=== PATIENT | female | born 1980 | race Caucasian/White ===

== ENCOUNTER 2016-10-26 15:12 | Emergency (ER) | payer SELFPAY ==
[2016-10-26] MEDS ORDERED: KETOROLAC TROMETHAMINE INJ 30 MG/ML VIAL IV ONE (15:57)
[2016-10-26] MEDS ORDERED: SODIUM CHLORIDE 0.9% 1000ML 1,000 ML IVS ONE (15:57)
--- NOTE | 2016-10-26 16:02 | ED.PDOC ---
History of Present Illness - General Chief Complaint: Problem Stated Complaint: L flank pain X 2 days Time Seen by Provider: 10/26/16 15:51 Source: patient, RN notes reviewed, Vital Signs reviewed Exam Limitations: no limitations - History of Present Illness Initial Comments: Patient comes in with c/o L flank pain that is radiating to her buttock and LLQ of her abdomen. Not improving with OTC Ibuprofen. Prior to the pain starting she was having some lower abd. pain and thought she was getting a UTI but her symptoms went away except for feeling the need to strain when she urinates. No fever, chills, N/V/D. Timing/Duration: constant - over past 2 days Quality: moderate, dull, sharpness Onset Location: left flank Radiation: LLQ, other - L buttock Activites at Onset: none Prior abdominal problems: none Sexual intercourse history: single partner Improving Factors: nothing Worsening Factors: nothing Associated Symptoms: lower back pain Allergies/Adverse Reactions: Allergies NO KNOWN ALLERGY Allergy (Verified 04/03/12 11:28) Home Medications: Ambulatory Orders Cyclobenzaprine HCl [Flexeril] 5 mg PO TID PRN #15 tab 10/26/16 Review of Systems - Review of Systems Constitutional: States: no symptoms reported Respiratory: States: no symptoms reported Cardiology: States: no symptoms reported Gastrointestinal/Abdominal: States: see HPI Genitourinary: States: see HPI Musculoskeletal: States: see HPI Skin: States: no symptoms reported Neurological: States: no symptoms reported All other Systems: No Change from Baseline Family Medical History - Family History Mother Family History: No Known Physical Exam - Physical Exam General Appearance: Alert, No apparent distress, Well Developed, Well Groomed, Well Hydrated, Well Nourished, Other - uncomfortable Neck: non-tender, full range of motion, supple, normal inspection Cardiovascular/Respiratory: no M/R/G, normal peripheral pulses, no JVD, normal breath sounds, no respiratory distress Gastrointestinal/Abdominal: normal bowel sounds, soft, no organomegaly, no pulsatile mass, tenderness - LUQ and suprapubic Back Exam: CVA tenderness (L) Extremity: normal range of motion, non-tender, normal inspection, no pedal edema Neurologic: alert, normal mood/affect, oriented x 3 Skin Exam: normal color - numerous tattoos, warm/dry Progress - Progress Progress: 10/26/16 18:01 Pain is better after flexeril Will d/c home with Rx She is agreeable with plan - Results/Orders Results/Orders: Laboratory Tests 10/26/16 10/26/16 10/26/16 15:55 16:08 16:08 WBC 12.4 H RBC 4.56 Hgb 14.1 Hct 41.6 MCV 91.4 MCH 30.9 MCHC 33.8 RDW 13.4 Plt Count 275 MPV 9.1 Absolute Neuts (auto) 9.90 H Absolute Lymphs (auto) 1.90 Absolute Monos (auto) 0.50 Absolute Eos (auto) 0.10 Absolute Basos (auto) 0.10 Neutrophils % 79.9 H Lymphocytes % 15.2 L Monocytes % 4.0 Eosinophils % 0.4 L Basophils % 0.5 Sodium 137 Potassium 4.2 Chloride 108 Carbon Dioxide 20 L Anion Gap 13.2 BUN 10 Creatinine 0.57 L BUN/Creatinine Ratio 17.5 Random Glucose 88 Serum Osmolality 272.3 L Calcium 9.5 Total Bilirubin 0.7 AST 18 ALT 10 Alkaline Phosphatase 66 Serum Total Protein 6.9 Albumin 4.2 Globulin 2.7 Albumin/Globulin Ratio 1.6 Urine Color Yellow Urine Appearance Sl cloudy Urine pH 7.5 Ur Specific Gilbert 1.025 Urine Protein Negative Urine Glucose (UA) Negative Urine Ketones Negative Urine Blood Negative Urine Nitrite Negative Urine Bilirubin Negative Urine Urobilinogen 0.2 Ur Leukocyte Esterase Negative Urine RBC 0 Urine WBC 0-1 Ur Epithelial Cells 1-3 Amorphous Sediment 3+ Urine Bacteria 0 Urine Mucus Trace - EKG/XRAY/CT CT Ordered: Yes - abd/pel: no acute process per Radiologist. Departure - Departure Clinical Impression: Strain, lumbosacral Qualifiers: Encounter type: initial encounter Qualified Code(s): S39.012A - Strain of muscle, fascia and tendon of lower back, initial encounter Time of Disposition: 18:02 Disposition: Discharge to Home or Self Care Condition: Good Departure Forms: ED Discharge - Pt. Copy, Patient Portal Self Enrollment Instructions: DI for Low Back Pain Diet: resume usual diet Activity: increase activity as tolerated Prescriptions: Cyclobenzaprine HCl [Flexeril] 5 mg PO TID PRN #15 tab PRN Reason: Muscle Spasms Home Medications: Ambulatory Orders Cyclobenzaprine HCl [Flexeril] 5 mg PO TID PRN #15 tab 07/28/17
--- NOTE | 2016-10-26 16:32 | CT ---
EXAM DESCRIPTION: Abdomen/Pelvis w/o Contrast CLINICAL HISTORY: 36 years Female L flank pain COMPARISON: None. TECHNIQUE: Contiguous axial images obtained through the abdomen and pelvis without IV contrast. Reformatted images obtained. This exam was performed according to our department optimization program which includes automated exposure control, adjustment of the mA and/or kv according to patient size and/or use of iterative reconstruction technique. FINDINGS: The lung bases are clear. The liver appears unremarkable. The spleen and pancreas appear unremarkable. No adrenal masses. Nonobstructing renal calculi bilaterally. The gallbladder is visualized. No aneurysmal dilatation of the aorta. No bowel obstruction. Trace fluid in the pelvis. IMPRESSION: Nonobstructing renal calculi. No evidence of acute process Electronically signed by: Rosalva Cerrato 10/26/2016 4:31 PM CDT
[2016-10-26 16:35] VITALS: TEMP 99.3
[2016-10-26] MEDS ORDERED: CYCLOBENZAPRINE HCL 10 MG TAB PO ONE (16:58)
[2016-10-26 18:22] VITALS: BP 126/67; O2SAT 96
== END 2016-10-26 18:05 | disposition home or self-care (01) ==
LOC: ER 15:12
DX: S39.012A Strain of muscle, fascia and tendon of lower back, initial encounter (principal); X58.XXXA Exposure to other specified factors, initial encounter

== ENCOUNTER 2017-01-02 10:55 | Emergency (ER) | payer SELFPAY ==
[2017-01-02 11:14] VITALS: TEMP 97.6
[2017-01-02] MEDS ORDERED: ONDANSETRON INJ 4 MG/2 ML VIAL IV ONE (11:16)
[2017-01-02] MEDS ORDERED: SODIUM CHLORIDE 0.9% 1000ML 1,000 ML IVS ONE ×2 (11:16→12:16)
--- NOTE | 2017-01-02 11:19 | ED.PDOC ---
History of Present Illness - General Chief Complaint: GI Problem Stated Complaint: Vomiting Time Seen by Provider: 01/02/17 11:10 Information Source: patient, RN notes reviewed, Vital Signs reviewed Exam Limitations: no limitations - History of Present Illness Initial Comments: Patient comes in with c/o nausea and vomiting that started @ 03:45 this morning. Reports she has vomited 15-16 times. + body aches. No diarrhea. + sharp , cramping abdominal pain. Mouth and throat feel swollen. c/o lips tingling. Abdominal Pain Onset Location: generalized abdomen Pain Radiation: no radiation Quality: moderate, cramping, sharpness Timing/Duration: 7-24 hours Improving Factors: nothing Worsening Factors: nothing Associated Symptoms: fatigue, nausea/vomiting Review of Systems - Review of Systems Constitutional: States: malaise EENTM: States: see HPI Respiratory: States: no symptoms reported Cardiology: States: no symptoms reported Gastrointestinal/Abdominal: States: see HPI, abdominal pain, nausea, vomiting Genitourinary: States: no symptoms reported Musculoskeletal: States: other - generalized body aches Skin: States: no symptoms reported, see HPI Neurological: States: tingling - Lips All other Systems: No Change from Baseline Family Medical History - Family History Mother Family History: No Known Living Status: Still Living Physical Exam - Physical Exam General Appearance: Ill Appearing, Restless, Well Developed, Well Nourished Eyes, Ears, Nose, Throat Exam: pharynx normal, other - dry mucous membranes Neck: supple, normal inspection Respiratory: lungs clear, normal breath sounds, no respiratory distress, no accessory muscle use Cardiovascular/Chest: regular rate, rhythm, no edema, no gallop, no JVD, no murmur Gastrointestinal/Abdominal: soft, abnormal bowel sounds - Hypoactive, tenderness - Mild, diffuse w/o guarding or rebound Extremity: normal range of motion, non-tender, normal inspection Neurologic: alert, normal mood/affect, oriented x 3 Skin Exam: normal color, warm/dry Comments: Vital Signs 01/02/17 11:12 Temperature 97.6 F Pulse Rate [ 97 H Left Radial] Respiratory 20 Rate Blood Pressure 113/58 [Left Arm] O2 Sat by Pulse 96 Oximetry Progress - Progress Progress: 01/02/17 12:14 Patient reports she is feeling significantly better. Nausea is gone and she is hungry. Still with some abdominal pain but not much worse than her baseline, daily pain. Still with FRANCO so will give a 2nd L of NS and if she continues to do well with d/c with Rx for Zofran. She is agreeable with plan. 01/02/17 12:48 Discussed elevated WBC count with patient. She does have chronic Hep C and reports she has been told her WBC count is high in the past. Since she responded so well to minimal intervention makes me less concerned but did give ER warnings for high fever, localized or worsening pain. Advised developing diarrhea is normal and that this should run its course in 24-72 hours. If not or if symptoms worsen she is to return to ER. She is agreeable with plan. - Results/Orders Results/Orders: Laboratory Tests 01/02/17 01/02/17 11:30 11:30 WBC 29.0 H* RBC 5.02 Hgb 15.5 Hct 46.4 MCV 92.4 MCH 30.8 MCHC 33.4 RDW 13.4 Plt Count 388 MPV 9.1 Absolute Neuts (auto) Not Reportable Absolute Lymphs (auto) Not Reportable Absolute Monos (auto) Not Reportable Absolute Eos (auto) Not Reportable Neutrophils % Not Reportable Neutrophils % (Manual) 87.0 Lymphocytes % Not Reportable Lymphocytes % (Manual) 3.0 Monocytes % Not Reportable Monocytes % (Manual) Not Reportable Eosinophils % Not Reportable Basophils % Not Reportable Band Neutrophils 10.0 Platelet Estimate Nor RBC Morphology Normal rbc morph Sodium 142 Potassium 3.2 L Chloride 105 Carbon Dioxide 21 Anion Gap 19.2 H BUN 19 H Creatinine 0.90 BUN/Creatinine Ratio 21.1 H Random Glucose 103 Serum Osmolality Not Reportable Calcium 9.7 Total Bilirubin 1.0 AST 68 H ALT 64 H Alkaline Phosphatase 120 Serum Total Protein 7.0 Albumin 4.3 Globulin 2.7 Albumin/Globulin Ratio 1.6 Departure - Departure Clinical Impression: Gastroenteritis Time of Disposition: 13:15 Disposition: Discharge to Home or Self Care Condition: Good Departure Forms: ED Discharge - Pt. Copy, Patient Portal Self Enrollment Instructions: DI for Viral Gastroenteritis -- Adult Diet: resume usual diet - Increased water intake Activity: increase activity as tolerated Prescriptions: Ondansetron Odt [Zofran ODT] 8 mg PO Q6HR PRN #15 tab PRN Reason: Nausea/Vomiting Home Medications: Ambulatory Orders Naproxen Sodium [Aleve] 220 mg PO TID 01/02/17 Ondansetron Odt [Zofran ODT] 8 mg PO Q6HR PRN #15 tab 01/02/17 diphenhydrAMINE HCL [Benadryl] 25 mg PO BEDTIME 01/02/17
[2017-01-02 13:30] VITALS: BP 120/70; O2SAT 97
== END 2017-01-02 13:20 | disposition home or self-care (01) ==
LOC: ER 10:55
DX: K52.9 Noninfective gastroenteritis and colitis, unspecified (principal)
CPT/HCPCS: 36415; 80053; 82150; 83690; 85025; J2405; J7030

== ENCOUNTER 2017-07-19 13:41 | Emergency (ER) | payer OTHER ==
--- NOTE | 2017-07-19 14:52 | RAD ---
EXAM DESCRIPTION: Elbow,Right 2 Views CLINICAL HISTORY: fall 48 hr ago COMPARISON: None Available. TECHNIQUE: AP, Lateral FINDINGS: Two-view right elbow shows no fracture or dislocation. No displacement of distal humeral fat pads. There is no bone lesion. There are no significant arthritic changes. There is no radiopaque foreign body. IMPRESSION: Negative Electronically signed by: Salinas Plata MD 07/19/2017 2:50 PM CDT
--- NOTE | 2017-07-19 14:53 | RAD ---
EXAM DESCRIPTION: Hip,Right 2 Views CLINICAL HISTORY: 37 years, Female, fall 48 hr ago COMPARISON: None TECHNIQUE: AP and frog leg lateral views of the hip FINDINGS: 2 views of the right hip reveal no fracture or dislocation. No lytic bone lesion. Degenerative spurring is seen at the femoral head neck junction. Mild spurring at the lateral acetabulum. This may indicate femoral acetabular impingement type anatomy. Correlate with clinical symptoms. IMPRESSION: Negative for fracture or dislocation. Electronically signed by: Salinas Plata MD 07/19/2017 2:51 PM CDT
--- NOTE | 2017-07-19 14:53 | RAD ---
EXAM DESCRIPTION: Lumbar Spine 3 Views CLINICAL HISTORY: fall 48 hr ago COMPARISON: None Available. TECHNIQUE: AP/lateral/coned-down lateral FINDINGS: There is anatomic alignment of the vertebral bodies and lumbar spine. Frontal view shows intact pedicles and transverse processes. Sacrum appears intact with normal SI joints. Lateral view shows no vertebral compressions. Marked degenerative disc space narrowing is seen at L5-S1 with mild anterior and posterior spurring. Normal bony mineralization. No destructive lesion. IMPRESSION: Degenerative disc space narrowing at L5-S1. Electronically signed by: Salinas Plata MD 07/19/2017 2:52 PM CDT
--- NOTE | 2017-07-19 14:54 | RAD ---
EXAM DESCRIPTION: Shoulder,Right 2 or More Views CLINICAL HISTORY: fall 48 hr ago COMPARISON: None Available. TECHNIQUE: Two views of the right shoulder. FINDINGS: There is adequate internal and external rotation. There is no fracture or dislocation. There are no significant degenerative changes observed. AC joint appears intact. No focal bone lesion. IMPRESSION: Negative for fracture or dislocation. Electronically signed by: Salinas Plata MD 07/19/2017 2:52 PM CDT
[2017-07-19] MEDS ORDERED: predniSONE 20 MG TAB PO ONE (14:58)
[2017-07-19] MEDS ORDERED: CYCLOBENZAPRINE HCL 10 MG TAB PO ONE (14:58)
--- NOTE | 2017-07-19 15:00 | ED.PDOC ---
History of Present Illness - General Chief Complaint: Trauma Time Seen by Provider: 07/19/17 13:59 Source: patient Exam Limitations: no limitations - History of Present Illness Initial Comments: the patient is a 37-year-old female presenting to the emergency room after a fall yesterday morning. The patient tripped and fell while holding a puppy and landed on her right side. She had some pain at the time that the pain has gotten more significant over the last 24 hours diffusely. She has no deformities. She does have a mild bruise over her right forearm as well as a mild bruise over her right isidro. She is actually moving the right arm well. She reports pain in the right shoulder diffusely as well as some low back pain. She has been ambulatory. She reports some right hip pain but passive and active range of motion is normal. No crepitus and no definite bony deformities are noted. No lacerations that she does have a very mild abrasion to her right flank as well as a mild abrasion to her left forehead from the fall yesterday. No significant head injury and no loss of consciousness. The patient does obviously have some muscle spasm in the back and shoulder diffusely. Timing/Duration: 24 hours Severity: moderate Improving Factors: nothing Worsening Factors: movement Associated Symptoms: denies symptoms Allergies/Adverse Reactions: Allergies NO KNOWN ALLERGY Allergy (Verified 01/02/17 11:11) Home Medications: Ambulatory Orders Naproxen Sodium [Aleve] 220 mg PO TID 01/02/17 Ondansetron Odt [Zofran ODT] 8 mg PO Q6HR PRN #15 tab 01/02/17 diphenhydrAMINE HCL [Benadryl] 25 mg PO BEDTIME 01/02/17 Cyclobenzaprine HCl [Flexeril] 5 mg PO TID PRN #30 tab 07/19/17 predniSONE [Prednisone] 20 mg PO DAILY #3 tab 07/19/17 Review of Systems - Review of Systems Constitutional: States: no symptoms reported EENTM: States: no symptoms reported Respiratory: States: no symptoms reported Cardiology: States: no symptoms reported Gastrointestinal/Abdominal: States: no symptoms reported Genitourinary: States: no symptoms reported Musculoskeletal: States: see HPI Skin: States: see HPI Neurological: States: no symptoms reported Endocrine: States: no symptoms reported All other Systems: No Change from Baseline Past Medical History (General) - Patient Medical History Hx Seizures: No Hx Stroke: No Hx Asthma: Yes Hx of COPD: No Hx Cardiac Disorders: No Hx Congestive Heart Failure: No Hx Hypertension: No Hx Diabetes: No Hx Gastroesophageal Reflux: Yes Hx Hepatitis C: Yes Surgical History: other - Vaccination History Hx Influenza Vaccination: No Hx Pneumococcal Vaccination: Yes - 2013 - Social History Hx Tobacco Use: Yes Family Medical History - Family History Mother Family History: No Known Living Status: Still Living Physical Exam - Physical Exam General Appearance: Alert, Comfortable, No apparent distress Eye Exam: bilateral normal Ears, Nose, Throat: hearing grossly normal, normal ENT inspection Neck: full range of motion, supple Respiratory: lungs clear, normal breath sounds, no respiratory distress, no accessory muscle use Cardiovascular/Chest: normal peripheral pulses, no edema Peripheral Pulses: radial,right: 2+, radial,left: 2+, dorsalis pedis,right: 2+, dorsalis pedis,left: 2+ Gastrointestinal/Abdominal: non tender, soft Rectal Exam: deferred Back Exam: other - the patient has diffuse low back discomfort palpation. There is obvious palpable muscle spasm primarily to the left side of the lumbar spine. Extremity: non-tender, normal inspection, no pedal edema, normal capillary refill Neurologic: testing director II-XII nml as tested, alert, normal mood/affect, oriented x 3 Skin Exam: normal color - mild abrasions as above. Mild bruises as above. Comments: Vital Signs - 24 hr 07/19/17 13:45 Temperature 98.5 F Pulse Rate [ 85 left brachial] Respiratory 20 Rate Blood Pressure 151/81 [left brachial] O2 Sat by Pulse 96 Oximetry Progress - Progress Progress: 07/19/17 15:01 the patient is a 37-year-old female presenting to the emergency room after a fall yesterday. X-rays of the right shoulder, lumbar spine, right hip and right elbow show no evidence of any acute fracture or dislocation. She does have chronic degenerative changes noted. The patient has significant inflammation and some mild muscle spasm. She will be written for Flexeril as a muscle relaxer for as needed use. She will additionally be written for 3 days of oral prednisone for anti-inflammatory purposes as well. topical heat may help reduce symptoms. She will likely have some soreness for at least the next 1-2 weeks. Range of motion exercises will also help to reduce spasm. Stretches will also help. Departure - Departure Clinical Impression: Fall in home Qualifiers: Encounter type: initial encounter Qualified Code(s): W19.XXXA - Unspecified fall, initial encounter; Y92.099 - Unspecified place in other non-institutional residence as the place of occurrence of the external cause Contusion Qualifiers: Encounter type: initial encounter Contusion area: forearm Disposition: Discharge to Home or Self Care Condition: Fair Departure Forms: ED Discharge - Pt. Copy, Patient Portal Self Enrollment Diet: regular diet Activity: increase activity as tolerated Referrals: Hal Sherman MD [Primary Care Provider] - 1-2 Weeks Prescriptions: Cyclobenzaprine HCl [Flexeril] 5 mg PO TID PRN #30 tab PRN Reason: Muscle Spasms predniSONE [Prednisone] 20 mg PO DAILY #3 tab Home Medications: Ambulatory Orders Naproxen Sodium [Aleve] 220 mg PO TID 01/02/17 Ondansetron Odt [Zofran ODT] 8 mg PO Q6HR PRN #15 tab 01/02/17 diphenhydrAMINE HCL [Benadryl] 25 mg PO BEDTIME 01/02/17 Cyclobenzaprine HCl [Flexeril] 5 mg PO TID PRN #30 tab 07/19/17 predniSONE [Prednisone] 20 mg PO DAILY #3 tab 07/19/17 Additional Instructions: the patient is a 37-year-old female presenting to the emergency room after a fall yesterday. X-rays of the right shoulder, lumbar spine, right hip and right elbow show no evidence of any acute fracture or dislocation. She does have chronic degenerative changes noted. The patient has significant inflammation and some mild muscle spasm. She will be written for Flexeril as a muscle relaxer for as needed use. She will additionally be written for 3 days of oral prednisone for anti-inflammatory purposes as well. topical heat may help reduce symptoms. She will likely have some soreness for at least the next 1-2 weeks. Range of motion exercises will also help to reduce spasm. Stretches will also help.
[2017-07-19 15:27] VITALS: BP 127/84; TEMP 98.5; O2SAT 97
== END 2017-07-19 15:14 | disposition home or self-care (01) ==
LOC: ER 13:41
DX: M25.511 Pain in right shoulder (principal); J45.909 Unspecified asthma, uncomplicated; K21.9 Gastro-esophageal reflux disease without esophagitis; Z86.19 Personal history of other infectious and parasitic diseases; Z87.891 Personal history of nicotine dependence; W01.0XXA Fall on same level from slipping, tripping and stumbling without subsequent striking against object, initial encounter; Y92.9 Unspecified place or not applicable
CPT/HCPCS: 72100; 73030; 73070; 73502; J7512

== ENCOUNTER 2017-08-24 19:43 | Emergency (ER) | payer OTHER ==
--- NOTE | 2017-08-24 20:10 | ED.PDOC ---
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 engine running and finger middle right got struck by the benefits counselor blade.Patient no laceration but with swelling/bruising right middle finger Occurred: yesterday Pain - Upper Extremity: mild: Hand, right - middle finger right Method of Injury: other - see hpi Improving Factors: rest Worsening Factors: movement Allergies/Adverse Reactions: Allergies Ibuprofen Allergy (Verified 08/24/17 20:08) Home Medications: Ambulatory Orders Naproxen Sodium [Aleve] 220 mg PO TID 01/02/17 Ondansetron Odt [Zofran ODT] 8 mg PO Q6HR PRN #15 tab 01/02/17 diphenhydrAMINE HCL [Benadryl] 25 mg PO BEDTIME 01/02/17 Cyclobenzaprine HCl [Flexeril] 5 mg PO TID PRN #30 tab 07/19/17 predniSONE [Prednisone] 20 mg PO DAILY #3 tab 07/19/17 Amoxicillin [Amoxil] 1,000 mg PO BID 7 Days #30 cap 08/24/17 Tramadol HCl 50 mg PO TID PRN #14 tab 08/24/17 Review of Systems - Review of Systems Constitutional: States: no symptoms reported EENTM: States: no symptoms reported Musculoskeletal: States: see HPI Skin: States: see HPI Neurological: States: no symptoms reported All other Systems: Reviewed and Negative, No Change from Baseline Past Medical History (General) - Patient Medical History Hx Seizures: No Hx Stroke: No Hx Asthma: Yes Hx of COPD: No Hx Cardiac Disorders: No Hx Congestive Heart Failure: No Hx Hypertension: No Hx Diabetes: No Hx Gastroesophageal Reflux: Yes Hx Hepatitis C: Yes Surgical History: other - BTL - Vaccination History Hx Tetanus, Diphtheria Vaccination: Yes - 4 years Hx Influenza Vaccination: No Hx Pneumococcal Vaccination: Yes - 2013 Immunizations Up to Date: Yes - Social History Hx Tobacco Use: Yes Family Medical History - Family History Mother Family History: No Known Living Status: Still Living Physical Exam - Physical Exam General Appearance: Alert, Comfortable, No apparent distress Eyes, Ears, Nose, Throat Exam: normal ENT inspection Neck: supple Cardiovascular/Respiratory: regular rate, rhythm, no M/R/G, normal peripheral pulses, normal breath sounds Abdominal Exam: non-tender Back Exam: normal inspection Shoulder Exam: no evidence of injury Elbow/Forearm Exam: no evidence of injury Wrist Exam: no evidence of injury Hand Exam: ecchymosis - right middle finger distal phalanx, swelling - right middle finger distal phalanx Neuro/Tendon: normal sensation, normal motor functions, normal tendon functions Mental Status: alert, oriented x 3 Skin Exam: normal color, warm/dry Departure - Departure Clinical Impression: Fracture of finger, distal phalanx, left, closed Qualifiers: Encounter type: initial encounter Finger: middle finger Fracture alignment: nondisplaced Qualified Code(s): S62.663A - Nondisplaced fracture of distal phalanx of left middle finger, initial encounter for closed fracture Contusion Qualifiers: Encounter type: initial encounter Contusion area: finger Finger: middle finger Damage to nail status: with damage Laterality: left Qualified Code(s): S60.132A - Contusion of left middle finger with damage to nail, initial encounter Time of Disposition: 21:00 Disposition: Discharge to Home or Self Care Condition: Fair Departure Forms: ED Discharge - Pt. Copy, Patient Portal Self Enrollment Instructions: Finger Fracture, DI for Finger Fracture Referrals: Hal Sherman MD [Primary Care Provider] - 1-2 Weeks Prescriptions: Amoxicillin [Amoxil] 1,000 mg PO BID 7 Days #30 cap Tramadol HCl 50 mg PO TID PRN #14 tab PRN Reason: Pain Home Medications: Ambulatory Orders Naproxen Sodium [Aleve] 220 mg PO TID 01/02/17 Ondansetron Odt [Zofran ODT] 8 mg PO Q6HR PRN #15 tab 01/02/17 diphenhydrAMINE HCL [Benadryl] 25 mg PO BEDTIME 01/02/17 Cyclobenzaprine HCl [Flexeril] 5 mg PO TID PRN #30 tab 07/19/17 predniSONE [Prednisone] 20 mg PO DAILY #3 tab 07/19/17 Amoxicillin [Amoxil] 1,000 mg PO BID 7 Days #30 cap 08/24/17 Tramadol HCl 50 mg PO TID PRN #14 tab 08/24/17
[2017-08-24 20:12] VITALS: TEMP 98.8; O2SAT 97
--- NOTE | 2017-08-24 20:42 | RAD ---
EXAM DESCRIPTION: Fingers,Right CLINICAL HISTORY: pain /swelling COMPARISON: None FINDINGS: 3 view(s) submitted. There is a tuft fracture, nondisplaced and not diastatic, in anatomic alignment of the third distal phalanx. No other fracture or dislocation. IMPRESSION: Third distal phalanx tuft fracture. Electronically signed by: Phill Mitchell 08/24/2017 8:41 PM CDT
[2017-08-24] MEDS ORDERED: AMOXICILLIN 500 MG CAP PO ONE (21:01)
[2017-08-24] MEDS ORDERED: HYDROcodone 10MG/APAP 325MG 1 EA TAB PO ONE (21:02)
[2017-08-24] MEDS ORDERED: HYDROCOD/APAP 7.5/325 (ER DISP) #3 TAB PO ONE (21:02)
[2017-08-24 21:21] VITALS: BP 130/87
== END 2017-08-24 21:21 | disposition home or self-care (01) ==
LOC: ER 19:43
DX: S62.662A Nondisplaced fracture of distal phalanx of right middle finger, initial encounter for closed fracture (principal); S60.131A Contusion of right middle finger with damage to nail, initial encounter; W28.XXXA Contact with powered lawn mower, initial encounter

== ENCOUNTER 2017-09-14 10:59 | Emergency (ER) | payer OTHER ==
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
[2017-09-14 11:43] VITALS: TEMP 97.5
[2017-09-14 12:06] VITALS: BP 118/76; O2SAT 99
[2017-09-14] MEDS ORDERED: IBUPROFEN 200 MG TAB PO ONE (12:10)
[2017-09-14] MEDS ORDERED: HYDROcodone 10MG/APAP 325MG 1 EA TAB PO ONE (12:10)
[2017-09-14] MEDS ORDERED: HYDROcodone 10MG/APAP 325MG 1 EA TAB ONE (12:12)
== END 2017-09-14 12:26 | disposition home or self-care (01) ==
LOC: ER 10:59
DX: S93.402A Sprain of unspecified ligament of left ankle, initial encounter (principal); J45.909 Unspecified asthma, uncomplicated; K21.9 Gastro-esophageal reflux disease without esophagitis; Z79.899 Other long term (current) drug therapy; Y92.009 Unspecified place in unspecified non-institutional (private) residence as the place of occurrence of the external cause; W23.1XXA Caught, crushed, jammed, or pinched between stationary objects, initial encounter; Y07.03 Male partner, perpetrator of maltreatment and neglect; Y08.89XA Assault by other specified means, initial encounter

== ENCOUNTER 2018-07-18 19:00 | Emergency (ER) | payer OTHER, SELFPAY ==
[2018-07-18] MEDS ORDERED: CYCLOBENZAPRINE HCL 10 MG TAB PO ONE (19:21)
[2018-07-18] MEDS ORDERED: HYDROcodone 7.5MG/APAP 325MG 1 EA TAB PO ONE (19:21)
[2018-07-18] MEDS ORDERED: predniSONE 20 MG TAB PO ONE (19:21)
--- NOTE | 2018-07-18 20:08 | RAD ---
EXAM DESCRIPTION: XR Lumbar Spine 3 Views CLINICAL HISTORY: 38 years Female fall 2 days ago with worsening pain TECHNIQUE: Three views of the lumbar spine were submitted. COMPARISON: Comparison is made to the prior examination dated 07/19/2017. FINDINGS: There are five true lumbar vertebral bodies. Again seen is mild straightening of the normal lumbar lordosis without acute fracture or spondylolisthesis. Also again seen is mild to moderate degenerative disc disease at L5-S1. Disc spaces and vertebral body heights are otherwise. No visualized aggressive osseous lesion. The sacroiliac joints are unremarkable. IMPRESSION: Stable examination with degenerative disc disease at L5-S1. No new findings. Electronically signed by: Mirna Funk MD 07/18/2018 8:05 PM CDT
[2018-07-18 20:13] VITALS: TEMP 98.1; O2SAT 98
[2018-07-18] MEDS ORDERED: traMADol HCL 50 MG TAB PO ONE (20:14)
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
[2018-07-18 21:11] VITALS: BP 125/76
== END 2018-07-18 21:10 | disposition home or self-care (01) ==
LOC: ER 19:00
DX: S39.012A Strain of muscle, fascia and tendon of lower back, initial encounter (principal); S70.11XA Contusion of right thigh, initial encounter; J45.909 Unspecified asthma, uncomplicated; K21.9 Gastro-esophageal reflux disease without esophagitis; Z86.19 Personal history of other infectious and parasitic diseases; Z87.891 Personal history of nicotine dependence; Z79.899 Other long term (current) drug therapy; Z88.6 Allergy status to analgesic agent; W13.3XXA Fall through floor, initial encounter; Y92.008 Other place in unspecified non-institutional (private) residence as the place of occurrence of the external cause
CPT/HCPCS: 72020; 72100; 72170; 73551; J7512

== ENCOUNTER 2019-10-21 14:33 | Emergency (ER) | payer SELFPAY ==
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
[2019-10-21] MEDS ORDERED: ACETAMINOPHEN W/COD #3 TAB 1 EA TAB PO ONE (16:24)
--- NOTE | 2019-10-21 17:03 | RAD ---
EXAM DESCRIPTION: Ankle,Left 2 Views CLINICAL HISTORY: 39 years, Female, injury COMPARISON: Previous left ankle x-rays September 14, 2017 TECHNIQUE: AP/oblique of the left ankle FINDINGS: No fracture. No dislocation. Lateral view is needed. Soft tissue swelling over the lateral malleolus. Malleolus and talus are dome appear intact. The status of the talus and calcaneus could be determined with a lateral view. IMPRESSION: Limited negative. Electronically signed by: Salinas Plata MD 10/21/2019 5:01 PM CDT
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
[2019-10-21 17:45] VITALS: BP 130/87; TEMP 98.4; O2SAT 99
== END 2019-10-21 17:45 | disposition home or self-care (01) ==
LOC: ER 14:33
DX: S93.401A Sprain of unspecified ligament of right ankle, initial encounter (principal); S33.5XXA Sprain of ligaments of lumbar spine, initial encounter; J45.909 Unspecified asthma, uncomplicated; K21.9 Gastro-esophageal reflux disease without esophagitis; Y04.0XXA Assault by unarmed brawl or fight, initial encounter; Y07.9 Unspecified perpetrator of maltreatment and neglect; Z86.19 Personal history of other infectious and parasitic diseases; Z87.891 Personal history of nicotine dependence; Y92.9 Unspecified place or not applicable